=== PATIENT | male | born 1955 | race Caucasian/White ===

== ENCOUNTER 2016-11-16 10:13 | Emergency (ER) | payer BC ==
[2016-11-16 10:28] VITALS: BP 145/67
[2016-11-16] MEDS ORDERED: Fluorescein Sodium TOPICAL* 1 MG TEST OPHTHALMIC ONE (10:31)
[2016-11-16] MEDS ORDERED: Tetracaine 0.5% OPTH.SOL 4 ML* 1 DROP BTL RIGHT EYE ONE (10:31)
--- NOTE | 2016-11-16 10:47 | UC ---
Eye Complaint HPI - HPI Summary HPI Summary: ? fb right eye as he was grinding a metal shaving went to his right eye + right eye irritation , redness, fb sensation , no change in vision , no photophobia - History of Current Complaint Chief Complaint: UCEye Stated Complaint: RIGHT EYE COMPLAINT Time Seen by Provider: 11/16/16 10:26 Hx Obtained From: Patient Onset/Duration: Sudden Onset, Lasting Days - 1, Still Present Timing: Constant Severity Initially: Moderate Severity Currently: Moderate Location of Injury: Other - right cornea Character: Foreign Body Sensation Aggravating Factor(s): Blinking Alleviating Factor(s): Nothing Associated Signs And Symptoms: Negative: Photophobia, Drainage (Clear), Drainage (Purulent), Vision Impairment Bilateral, Vision Impairment Right, Vision Impairment Left, Fever, Swelling - Allergies/Home Medications Allergies/Adverse Reactions: Allergies Allergy/AdvReac Type Severity Reaction Status Date / Time No Known Allergies Allergy Verified 11/16/16 10:21 Home Medications: Home Medications Aspirin [Aspirin Adult Low Dose 81 MG] 81 mg PO DAILY 11/16/16 [History Confirmed 11/16/16] Simvastatin [Zocor 40 MG (NF)] 20 mg PO QPM 11/16/16 [History Confirmed 11/16/16 ] PMH/Surg Hx/FS Hx/Imm Hx Previously Healthy: Yes - Surgical History Surgical History: None - Family History Known Family History: Negative: Diabetes - Social History Alcohol Use: Occasionally Substance Use Type: None Smoking Status (MU): Former Smoker Type: Cigarettes When Did the Patient Quit Smoking/Using Tobacco: 5 YRS AGO Review of Systems Constitutional: Negative Skin: Negative Eyes: Other - fb senstaion right eye ENT: Negative Respiratory: Negative Cardiovascular: Negative All Other Systems Reviewed And Are Negative: Yes Physical Exam Triage Information Reviewed: Yes Appearance: Well-Appearing, No Pain Distress, Well-Nourished Vital Signs: Initial Vital Signs Temp 98.5 F 11/16/16 10:22 Pulse 81 11/16/16 10:22 Resp 18 11/16/16 10:22 BP 145/67 11/16/16 10:22 Pulse Ox 97 11/16/16 10:22 Vital Signs Reviewed: Yes Eye Exam: Normal Eyes: Positive: Conjunctiva Clear, Other: - no fb seen on the right eye + mild corneal abrasion right eye. Negative: Conjunctiva Inflamed, Discharge ENT: Positive: Normal ENT inspection, Hearing grossly normal, Pharynx normal Neck: Positive: Supple, Nontender, No Lymphadenopathy Respiratory: Positive: Chest non-tender, Lungs clear, Normal breath sounds Cardiovascular: Positive: RRR, No Murmur, Pulses Normal Eye Complaint Course/Dx - Differential Dx/Diagnosis Provider Diagnoses: corneal abrasion right eye Discharge - Discharge Plan Condition: Stable Disposition: HOME Prescriptions: Erythromycin OPHTH.OINT* [Ilotycin OPHTH.OINT*] 1 applic RIGHT EYE Q4HR #1 tube Patient Education Materials: Corneal Abrasion (ED) Additional Instructions: follow up if not better in 2 days
== END 2016-11-16 11:02 | disposition home or self-care (01) ==
LOC: UCCORT 10:13
DX: S05.01XA Injury of conjunctiva and corneal abrasion without foreign body, right eye, initial encounter (principal); X58.XXXA Exposure to other specified factors, initial encounter; Y93.89 Activity, other specified; Y92.9 Unspecified place or not applicable; Z87.891 Personal history of nicotine dependence
CPT/HCPCS: 99202; A9270-GY; G0463